=== PATIENT | male | born 1980 | race Caucasian/White ===

== ENCOUNTER → 2017-09-15 | Outpatient (CLI) | payer OTHER | LOC: COL.RAD 11:14 | DX: K92.1 Melena (principal); K63.89 Other specified diseases of intestine | CPT/HCPCS: Q9967 ==

== ENCOUNTER 2017-09-26 11:50 | Day surgery (SDC) | payer OTHER ==
[~2017-09-26] VITALS: Ht 188 cm; Wt 85.3 kg
[2017-09-26 12:06] VITALS: BP 135/96; PULSE 75; TEMP 98.7
[2017-09-26] MEDS ORDERED: PROBIOTIC FORMU1 CAP PO (12:23)
[2017-09-26] MEDS ORDERED: TUMS500 MG PO (12:24)
[2017-09-26 14:05] VITALS: BP 132/92; PULSE 77; TEMP 97.7
[2017-09-26 14:15] VITALS: BP 127/86; PULSE 78
[2017-09-26 14:30] VITALS: BP 129/90; PULSE 77
[2017-09-26 14:45] VITALS: BP 122/80; PULSE 62
[2017-09-26] MEDS ORDERED: LIALDA 1.2 GM1.2 GM PO (14:58)
[2017-09-26 15:00] VITALS: BP 129/86; PULSE 73
== END 2017-09-26 15:30 | disposition home or self-care (01) ==
LOC: SDCO 11:50
DX: K52.9 Noninfective gastroenteritis and colitis, unspecified (principal); Z88.2 Allergy status to sulfonamides
CPT/HCPCS: OP; J2250; J2405; J3010; J7030